=== PATIENT | female | born 1940 | race Caucasian/White ===

== ENCOUNTER 2018-04-07 20:38 | Inpatient (IN) ==
--- NOTE | 2018-04-08 02:24 | History & Physical Report ---
Date of Service April 08, 2018 Assessment & Plan (1) Elevated d-dimer: 78F presented earlier this afternoon to [facility] with complaint of dyspnea. Had started several weeks prior, worsened by walking and exertion, resolved with rest. She has had a cough in the last few weeks which was treated with antibiotic for sinusitis. 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 Denies prolonged air travel, h/o clots, not on estrogens, leg swelling or edema. Denies fevers/chills. Denies unintended weight loss. Denies h/o CHF. Denies weakness or numbness or tingling, chest pain. Has a dry cough. On review of outside records: On room air, vitals stable. Chest x-ray was unremarkable. BMP remarkable for estimated GFR 46, creatinine 1.2, troponin less than 0.02. Urinalysis negative for nitrates, few white blood cells, moderate epithelial cells. CBC remarkable for pancytopenia white blood cell 2.5 up from 1.7, hemoglobin 9.2 down from 11.9, hematocrit 27.1, MCV 108, platelets 135, d-dimer 669 INR 1.25, BNP 29.2 EKG reviewed rate of 75, QTC 415, normal sinus rhythm with no ischemic changes. Concern for elevated D-dimer in setting of BENTON, dye allergy, transferred here for VQ scan. Elevated D-dimer (669), dyspnea for several weeks in setting of polycythemia vera -allergic to IV dye -plan for VQ scan to r/o PE -O2 as needed. Currently on room air and not tachycardic. -Tele FEN/GI: heart healthy DVT ppx: lovenox CODE STATUS: FULL as discussed with pt DISPO: Tele. Other ongoing medical problems: Polycythemia vera -stable -under the care of Dr. Tinoco as above for this. Per report has just completed cyclosporine, and hydroxyurea was DCed 1 month ago Depression -cont home citalopram Pain -cont home gabapentin, voltaren gel Hypovitaminosis -cont home vit D Reflux -cont home PPI (2) Polycythemia vera: (3) Dyspnea: (4) Dye allergic reaction: (5) Depression: (6) Chronic pain: History of Present Illness Primary Care Provider: NO PCP 78F presented earlier this afternoon to [facility] with complaint of dyspnea. Had started several weeks prior, worsened by walking and exertion, resolved with rest. She has had a cough in the last few weeks which was treated with antibiotic for sinusitis. 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 Denies prolonged air travel, h/o clots, not on estrogens, leg swelling or edema. Denies fevers/chills. Denies unintended weight loss. Denies h/o CHF. Denies weakness or numbness or tingling, chest pain. Has a dry cough. On review of outside records: On room air, vitals stable. Chest x-ray was unremarkable. BMP remarkable for estimated GFR 46, creatinine 1.2, troponin less than 0.02. Urinalysis negative for nitrates, few white blood cells, moderate epithelial cells. CBC remarkable for pancytopenia white blood cell 2.5 up from 1.7, hemoglobin 9.2 down from 11.9, hematocrit 27.1, MCV 108, platelets 135, d-dimer 669 INR 1.25, BNP 29.2 EKG reviewed rate of 75, QTC 415, normal sinus rhythm with no ischemic changes. Concern for elevated D-dimer in setting of BENT[place], dye allergy, transferred here for VQ scan. Allergic to IV contrast (hives), penicillins, ibuprofen, oxycodone. PMH 1. Arthritis 2. Depression 3. Hypertension, heart catheterization in 2013 clear 4. Polycythemia vera PSH 1. Cholecystectomy 2. Total hysterectomy 3. Bilateral knee replacement SH: Lives alone. Daughter is at bedside. 39-[id number]-ezwk history, quit 5 years ago. Denies etoh/drugs. Home medications: Aspirin 81 mg daily Citalopram p.o. daily Gabapentin p.o. at bedtime Voltaren gel 4 times a day Vitamin D Allergies Allergy/AdvReac Type Severity Reaction Status Date / Time ibuprofen Allergy Hives Verified 04/08/18 03:05 Iodinated Contrast- Oral and Allergy Hives Verified 04/08/18 03:05 IV Dye oxycodone Allergy Redness of Verified 04/08/18 03:05 Skin Penicillins Allergy Hives Verified 04/08/18 03:05 Home Medications Home Medications Medication Instructions Recorded Confirmed Type aspirin [Aspir-81] 81 mg PO DAILY 04/08/18 04/08/18 History cholecalciferol (vitamin D3) 2,000 units PO BID 04/08/18 04/08/18 History [Vitamin D3] citalopram 20 mg PO DAILY 04/08/18 04/08/18 History clotrimazole-betamethasone % TOPICAL 04/08/18 History diclofenac sodium [Voltaren] 1 % TOPICAL QID 04/08/18 04/08/18 History folic acid 1 mg PO DAILY 04/08/18 04/08/18 History gabapentin 200 mg PO TID 04/08/18 04/08/18 History hydroxyurea 500 mg PO DAILY 04/08/18 04/08/18 History omeprazole PO DAILY 04/08/18 History Past Med/Surg History Medical History Anxiety Chronic back pain Depression GERD (gastroesophageal reflux disease) History of hysterectomy Hypertension Osteoarthritis Peripheral neuropathy Surgical History History of cholecystectomy History of total knee replacement Social History Current Living Situation: Alone Other Information That Helps Us Care for You: No Feels Safe at Home: Yes Safety Concerns: Feels Safe At This Time Smoking Status: Former smoker Smoking End Date: 2012 Hx Alcohol Use: No Hx Substance Use: No Beliefs That Will Affect Care: None Preferred Language: [place] Communication Ability: Effective Review of Systems All systems reviewed & are unremarkable except as noted in HPI & below Physical Exam 2 Physical Exam: Vitals noted on telemetry are within normal limits . GENERAL: Awake, alert to person, place, and time, nontoxic-appearing, in no distress HENT: Normocephalic, atraumatic. . Mucus membranes appear moist. EYES: Normal conjunctiva. Sclera non-icteric. EOMI. NECK: Supple. Full range of motion. No JVD RESPIRATORY: Clear to auscultation. Normal work of breathing. CARDIAC: Regular rate, normal rhythm. Extremities warm and well perfused, 2+ radial pulses bilaterally; 2+ posterior tibialis pulses bilaterally. ABDOMEN: Soft, non-distended. No tenderness to palpation in all four quadrants. No rebound or guarding. No masses. Bowel sounds are normal. LOWER EXTREMITIES: Inspection of calves reveal equal size bilaterally. They are non-tender. No edema. No discoloration. NEURO: No focal gross focal motor deficits noted. Sensation in tact. CN II-XII grossly in tact. SKIN: Rash not present. No jaundice noted. Significant lesions not present. PSYCH: Appropriate mood and affet. Cooperative. Exam as done by Jasmin Rocha MD, Lead Bi Developer. Supervising Physician Co-Signing Physician Notes Pt was seen/examined following the resident MD Mag Rocha. Orders and plan of care were discussed with the resident. 78 y/o F Hx HTN, depression, polycythemia vera. Presents from [place] for c/o exertional dyspnea. Despite a lack of hypoxia or tachycardia, they determined that she should have a CT chest to R/O PE due to her underlying polycythemia. She is allergic to dye however which gives her hives. She was transferred to [facility] to undergo a VQ scan although it is entorely unclear why they did not give her steroids and obtain the CT at [place]. She reports she has had to have dye during a prior surgical procedure and was fine after receiving steroids and Benadryl. She does not have any symptoms at rest on arrival to [facility]. OE AAO x 3 S1,2 R CTAB NT, ND, No CCE No deficits P: The pt is scheduled for a VQ. Her pretest probability is low. If the test is negative we could consider DC or if the test is equivocal we could consider treating with steroids and Benadryl and then obtaining the CT. Resident Activity Tracking Resident Involvement: Resident Care Provided Care Provided: Adult Hospital Medicine
[2018-04-08] MEDS ORDERED: ACETAMINOPHEN 325 MG TAB PO PRN (02:36)
[2018-04-08] MEDS ORDERED: POLYETHYLENE (MIRALAX) 17 GM PACK PO PRN (02:36)
[2018-04-08] MEDS ORDERED: MAGNESIUM HYDROXIDE SUSP 30 ML UDC PO PRN (02:36)
[2018-04-08] MEDS ORDERED: ALUMINUM/MAGNESIUM SUSP 30 ML UDC PO PRN (02:36)
[2018-04-08] MEDS ORDERED: PATIENT'S ALLERGY INFO NEEDS ENTERED SCH (02:45)
[2018-04-08 07:36] LABS: INR 1.2 (0.9-1.1); Prothrombin Time 11.8 Seconds (9.0-12.0)
[2018-04-08 07:43] LABS: Hematocrit (blood only) 26.3 % (37-47); Hemoglobin 8.9 g/dL (12.0-16.0); Mean Corpuscular Hgb Conc 33.8 g/dL (32-36); Mean Corpuscular Volume 109.6 fL (80-100); Mean Platelet Volume 10.3 fL (7.4-10.4); Nucleated RBC # (auto) 0.09 K/uL (0-0); Nucleated RBC % (auto) 3.4 %; Platelet Count 110 K/uL (130-400); RDW Standard Deviation 59.8 fL (36.4-46.3); White Blood Count 2.49 K/uL (4.8-10.8)
[2018-04-08] MEDS: GABAPENTIN 100 MG CAP PO SCH ×3 (07:52→20:35)
[2018-04-08] MEDS: PANTOprazole 40 MG TAB PO SCH (07:52)
[2018-04-08] MEDS: ASPIRIN 81 MG ECTAB PO SCH (07:52)
[2018-04-08] MEDS: CHOLECALCIFEROL 1,000 UNITS TAB PO SCH ×2 (07:52→20:34)
[2018-04-08] MEDS: CITALOPRAM 20 MG TAB PO SCH (07:53)
[2018-04-08] MEDS: FOLIC ACID 1 MG TAB PO SCH (07:53)
[2018-04-08] MEDS: DICLOFENAC SOD 1% GEL 100 GM TUBE EXT SCH ×4 (07:54→20:35)
[2018-04-08 07:56] LABS: BUN Creatinine Ratio 17.3 (10-20); Calcium 8.7 mg/dl (8.5-10.1); Creatinine Clr Calc Pharmacy 47.1 ml/min; Est GFR (African American) 58.1; Est GFR (Non-African American) 50.1; Potassium 4.2 mmol/L (3.5-5.1)
[2018-04-08 08:03] LABS: Hypogranular Neutrophils 2+
[2018-04-08 08:06] LABS: ALC (manual) 1.33 K/uL (1.2-3.4); Blast Cells % (manual) 16.1 %; Lymphocytes # (manual) 1.33 K/uL (1.2-3.4); Lymphocytes % (manual) 53.5 %; Neutrophils % (manual) 30.4 %
[2018-04-08] MEDS ORDERED: ENOXAPARIN INJ 40 MG/0.4 ML SYR SQ SCH (09:00)
[2018-04-08 09:12] LABS: Macrocytosis Present
--- NOTE | 2018-04-08 12:53 | Nuclear Medicine Report ---
NUCLEAR MEDICINE VENTILATION/PERFUSION SCAN CLINICAL HISTORY: Dyspnea. Cough. Elevated d-dimer. COMPARISON: None TECHNIQUE: For the ventilation portion of this exam, 33.4 mCi of DTPA was inhaled at 12:00 PM on Apr. Immediately following inhalation, imaging of the chest was carried out in the anterio r, posterior, left lateral, right lateral, LPO, RPO, MAN and SMITH projections. For the perfusion port ion of exam, 5.7 mCi of technetium 99m MAA was injected IV at 12:20 PM on April 08, 2018. Immediate ly following injection, imaging of the chest was carried out in the same projections. FINDINGS: Mild central radiotracer deposition on the ventilation portion of this exam is noted. On p erfusion images, note is made of a small focus of apparent diminished perfusion within the upper left lung. Correlation with the ventilation images is difficult given patchy radiotracer deposition on th e ventilation images. No additional defects on the perfusion images are noted. IMPRESSION: Small focus of apparent diminished perfusion within the left upper lung. Correlation wit h ventilation images is difficult on this exam. Follow-up PA and lateral chest radiographs are recomm ended to evaluate for corresponding airspace opacity or other potential etiologies such as a pacemake r. At most, this study is intermediate probability for pulmonary embolus. Electronically signed by: Elmer Mcnulty M.D. 04/08/2018 12:51 PM
[2018-04-08] MEDS ORDERED: SODIUM CHLORIDE 0.65% NA SOLN 45 ML (OCEAN) PRN (14:04)
--- NOTE | 2018-04-08 14:18 | Hospitalist Progress Note ---
Date of Service April 08, 2018 Assessment & Plan (1) Elevated d-dimer: This pt is an 78 yo female with a h/o PV previously on hydroxyurea, depression, GERD, and chronic pain, who who p/w complaint of dyspnea worsening over the last week. It is worsened by walking and exertion, resolved with rest. She has had a cough in the last few weeks which was treated with antibiotic for sinusitis but had no improvement. She is unable to breathe throough her nose. SHe is also a former 50 pack year smoker, quit 5 years ago, no formal diagnosis of COPd and no h/o frequent bronchitis. She was seen at [facility] and had a +D-dimer, but with contrast allergy, was transferred here to [facility] to undergo V/Q scan to look for PE. Of note, she recently stopped her Hydroxyurea one month ago for low cell counts and was placed on acyclovir for prophylaxis. She had an abnormal peripheral smear here with blasts, suggestive of possible AML. ehas a f/u appt with her Vascular Surgeon on 04/10/18. Denies prolonged air travel, h/o clots, not on estrogens, leg swelling or edema. Denies fevers/chills. Denies unintended weight loss. Denies h/o CHF. Denies weakness or numbness or tingling, chest pain. Has a dry cough. On review of outside records: On room air, vitals stable. Chest x-ray was unremarkable. BMP remarkable for estimated GFR 46, creatinine 1.2, troponin less than 0.02. Urinalysis negative for nitrates, few white blood cells, moderate epithelial cells. CBC remarkable for pancytopenia white blood cell 2.5 up from 1.7, hemoglobin 9.2 down from 11.9, hematocrit 27.1, MCV 108, platelets 135, d-dimer 669 INR 1.25, BNP 29.2 EKG reviewed rate of 75, QTC 415, normal sinus rhythm with no ischemic changes. Concern for elevated D-dimer in setting of BENT[place], dye allergy, transferred here for VQ scan. Elevated D-dimer (669), dyspnea for 1 week in setting of polycythemia vera and possible new diagnosis of AML V/Q scan here at most intermediate probability with perfusion defect ANAY but ventilation did not get to this area. ECHO without evidence of right heart strain. Remains with significant BENTON but not hypoxic at rest. -allergic to IV dye -plan to pretreat with steroids and benadryl as per protocol on [employer] with prednisone 50mg po at 13 hrs, 7 hrs, and [address], benadryl 50mg po [address] scan and perform in the AM Pt reports she has had IV dye since her hives occurred in 1983 -will start full dose Lovenox 1 mg/kg bid to cover until CT scan result is back -check 2 step prior to discharge (2) Polycythemia vera: Was on hydrea for long time, now recently with low counts, was stopped Peripheral smear here with blasts and possible AML? Sent for FISH studies by Pathology Discussed with Dr. Carr here who contacted her Oncologist--> he is aware of her low counts and has an appt to see her in his office on 04/10/18 There was mention in H&P of cyclosporine--> pt was never prescribed this--> her daughter contacted her pharmacy--> it was Acyclovir prescribed while counts were low to prevent her from getting shingles [facility] 750 here--> placed on neutropenic precautions -follow CBC in AM (3) Dyspnea: Worsening over at least 1 week. Has h/po smoking, has worsening anemia, all could be contributing. No evidence of volume overload but ECHO does show grade 1 diastolic dysfucntion. -r/o PE as above given elevated D-dimer and ongoing possible AML -steroids for pre-treatment for CT scan may actually help her breathing if due to COPD exacerbation -treat for acute sinusitis with Levaquin and see if this helps as well -Flonase and nasal saline for sinus congestion as well (4) Dye allergic reaction: pretreat as above (5) Depression: -continue Celexa (6) Chronic pain: continue gabapentin, Voltaren gel (7) Pancytopenia: as above, peripheral smear with blasts, possible AML -FISH studies pending -f/u with Oncologist as scheduled on 04/10/18 (8) Chronic diastolic CHF (congestive heart failure): grade 1 diastolic dysfunction on ECHO here no right sided strain -no volume overload at this time (9) DVT prophylaxis: Lovenox full dose Dispo-remain on tele Subjective Pt reports she still feels SOB with minimal exertion. Has a lot of sinus congestion and facial pressure, mild frontal headache, no relief with Biaxin course she took 2 weeks ago for 10 days. Minimal cough, no chest pain ever. No leg pain or leg swelling. No fevers. Tele with NSR, rates in 70s, 1st degree AV block Review of Systems All systems reviewed & are unremarkable except as noted in HPI & below Physical Exam 2 Vital Signs (Past 24 Hours): Last Vital Signs Temp 36.8 C 04/08/18 12:00 Pulse 75 04/08/18 12:00 Resp 20 04/08/18 12:00 BP 128/63 04/08/18 12:00 Pulse Ox 96 04/08/18 12:00 Constitutional: WD/WN, vitals as above Eyes: PERRL, conjunctivae normal, anicteric sclerae ENMT: external ear and nose normal, oropharynx normal Neck: trachea midline, no thyromegaly Respiratory: normal respiratory effort, lungs clear to auscultation Cardiovascular: RRR, no murmur, no edema Gastrointestinal (Abdomen): normal bowel sounds, soft, nontender, no hepatosplenomegaly Musculoskeletal: Extremities: extremities normal to inspection (no calf tenderness, neg Lisa's sign bilat); no cyanosis and no clubbing Skin: no rashes, warm and dry Neurologic: moves all extremities and awake; no focal motor deficits Psychiatric: A+Ox3, euthymic affect Results & Data Laboratory Results 04/08/18 04/08/18 04/08/18 Range/Units 07:05 07:05 07:05 WBC (4.8-10.8) K/uL RBC (4.2-5.4) M/uL Hgb (12.0-16.0) g/dL Hct (37-47) % MCV (80-100) fL MCH (25-34) pg MCHC (32-36) g/dL RDW Std Deviation (36.4-46.3) fL RDW Coeff of Radha (11.5-14.5) % Plt Count (130-400) K/uL MPV (7.4-10.4) fL Absolute Nucleated RBC (0-0) K/uL Nucleated RBC % (auto) % Neutrophils % (Manual) % Lymphocytes % (Manual) % Blast Cells % (Manual) % Neutrophils # (Manual) (1.4-6.5) K/uL Total Absolute Neuts (1.4-6.5) K/uL Lymphocytes # (Manual) (1.2-3.4) K/uL Total Abs Lymphocytes (1.2-3.4) K/uL Blast Cells # (Man) (0-0) K/uL Hypogranular Neuts Blood Smear Review Giant Platelets Macrocytosis PT 11.8 (9.0-12.0) Seconds INR 1.2 H (0.9-1.1) Sodium 139 (136-145) mmol/L Potassium 4.2 (3.5-5.1) mmol/L Chloride 105 (98-107) mmol/L Carbon Dioxide 28 (21-32) mmol/L Anion Gap 6.0 (3-11) BUN 18 (7-18) mg/dl Creatinine 1.05 (0.6-1.2) mg/dl Est Cr Clr Drug Dosing 47.1 ml/min Est GFR ( Amer) 58.1 Est GFR (Non-Af Amer) 50.1 BUN/Creatinine Ratio 17.3 (10-20) Glucose 111 H (70-99) mg/dl Calcium 8.7 (8.5-10.1) mg/dl AML (FISH) Pending Flow Cytometry Comment Pending [facility] Pending 04/08/18 Range/Units 07:05 WBC 2.49 L (4.8-10.8) K/uL RBC 2.40 L (4.2-5.4) M/uL Hgb 8.9 L (12.0-16.0) g/dL Hct 26.3 L (37-47) % MCV 109.6 H (80-100) fL MCH 37.1 H (25-34) pg MCHC 33.8 (32-36) g/dL RDW Std Deviation 59.8 H (36.4-46.3) fL RDW Coeff of Radha 15.0 H (11.5-14.5) % Plt Count 110 L (130-400) K/uL MPV 10.3 (7.4-10.4) fL Absolute Nucleated RBC 0.09 H (0-0) K/uL Nucleated RBC % (auto) 3.4 % Neutrophils % (Manual) 30.4 % Lymphocytes % (Manual) 53.5 % Blast Cells % (Manual) 16.1 % Neutrophils # (Manual) 0.76 L (1.4-6.5) K/uL Total Absolute Neuts 0.76 L* (1.4-6.5) K/uL Lymphocytes # (Manual) 1.33 (1.2-3.4) K/uL Total Abs Lymphocytes 1.33 (1.2-3.4) K/uL Blast Cells # (Man) 0.40 H (0-0) K/uL Hypogranular Neuts 2+ Blood Smear Review Giant Platelets 2+ Macrocytosis Present PT (9.0-12.0) Seconds INR (0.9-1.1) Sodium (136-145) mmol/L Potassium (3.5-5.1) mmol/L Chloride (98-107) mmol/L Carbon Dioxide (21-32) mmol/L Anion Gap (3-11) BUN (7-18) mg/dl Creatinine (0.6-1.2) mg/dl Est Cr Clr Drug Dosing ml/min Est GFR ( Amer) Est GFR (Non-Af Amer) BUN/Creatinine Ratio (10-20) Glucose (70-99) mg/dl Calcium (8.5-10.1) mg/dl AML (FISH) Flow Cytometry Comment Misc Genetic Test Diagnostic Findings V/Q scan: NUCLEAR MEDICINE VENTILATION/PERFUSION SCAN CLINICAL HISTORY: Dyspnea. Cough. Elevated d-dimer. COMPARISON: None TECHNIQUE: For the ventilation portion of this exam, 33.4 mCi of DTPA was inhaled at 12:00 PM on April 08, 2018. Immediately following inhalation, imaging of the chest was carried out in the anterior, posterior, left lateral, right lateral, LPO, RPO, [place] and SMITH projections. For the perfusion portion of exam, 5.7 mCi of technetium 99m MAA was injected IV at 12:20 PM on April 08, 2018. Immediately following injection, imaging of the chest was carried out in the same projections. FINDINGS: Mild central radiotracer deposition on the ventilation portion of this exam is noted. On perfusion images, note is made of a small focus of apparent diminished perfusion within the upper left lung. Correlation with the ventilation images is difficult given patchy radiotracer deposition on the ventilation images. No additional defects on the perfusion images are noted. IMPRESSION: Small focus of apparent diminished perfusion within the left upper lung. Correlation with ventilation images is difficult on this exam. Follow-up PA and lateral chest radiographs are recommended to evaluate for corresponding airspace opacity or other potential etiologies such as a pacemaker. At most, this study is intermediate probability for pulmonary embolus.
[2018-04-08] MEDS ORDERED: ENOXAPARIN INJ 60 MG/0.6 ML SYR SQ STA (14:49)
[2018-04-08] MEDS: FLUTICASONE PROPIONATE NA SPR 16 GM BTL SCH (15:30)
[2018-04-08] MEDS ORDERED: LEVOFLOXACIN/D5W 750 MG/150 ML BAG IV SCH (16:00)
[2018-04-08] MEDS ORDERED: predniSONE 50 MG TAB PO ONE ×2 (18:00→23:59)
[2018-04-09] MEDS ORDERED: ENOXAPARIN 100 MG/1ML SYR SQ SCH (04:00)
[2018-04-09] MEDS ORDERED: DIPHENHYDRAMINE PO SCH (06:00)
[2018-04-09] MEDS ORDERED: DiphenhydrAMINE HCL 50 MG/ML VIAL IV ONE (06:00)
[2018-04-09] MEDS ORDERED: predniSONE 50 MG TAB PO ONE (06:00)
[2018-04-09] MEDS ORDERED: OPTIRAY 320 125ml IV PRN (07:00)
--- NOTE | 2018-04-09 07:15 | CT Scan Report ---
CT angio chest PE protocol CT DOSE: 498.90 mGy.cm HISTORY: Chest pain PE TECHNIQUE: Multiaxial CT images of the chest were performed following the intravenous administration of contrast to evaluate the pulmonary arteries. Maximal intensity projection images were also obtaine d. A dose lowering technique was utilized adhering to the principles of ALARA. COMPARISON STUDY: None. FINDINGS: There is a normal caliber thoracic aorta with no evidence for dissection. There is no evide nce for pulmonary embolus. No pleural effusions. No pneumothorax. The liver and spleen are unremarkab le. No mediastinal or hilar lymphadenopathy. The central airways are patent. The lungs are clear. IMPRESSION: No evidence for pulmonary embolus. Lungs are clear. Mild emphysematous change. The above report was generated using voice recognition software. It may contain grammatical, syntax or spelling errors. Electronically signed by: Huseyin Espinosa M.D. 04/09/2018 7:14 AM
[2018-04-09 07:26] LABS: Hematocrit (blood only) 27.5 % (37-47); Hemoglobin 9.3 g/dL (12.0-16.0); Mean Corpuscular Hgb Conc 33.8 g/dL (32-36); Mean Corpuscular Volume 109.1 fL (80-100); Mean Platelet Volume 10.3 fL (7.4-10.4); Nucleated RBC # (auto) 0.12 K/uL (0-0); Nucleated RBC % (auto) 4.7 %; Platelet Count 113 K/uL (130-400); RDW Coefficient of Variation 14.9 % (11.5-14.5); Red Blood Count 2.52 M/uL (4.2-5.4); White Blood Count 2.46 K/uL (4.8-10.8)
[2018-04-09 07:34] LABS: INR 1.2 (0.9-1.1)
[2018-04-09 07:57] LABS: BUN Creatinine Ratio 21.4 (10-20); Calcium 8.8 mg/dl (8.5-10.1); Creatinine Clr Calc Pharmacy 40.2 ml/min; Est GFR (Non-African American) 41.4
[2018-04-09 08:44] LABS: Hypogranular Neutrophils 3+; Macrocytosis Present; Ovalocytes 1+
[2018-04-09 08:46] LABS: ALC (manual) 1.03 K/uL (1.2-3.4); Blast # (manual) 0.24 K/uL (0-0); Blast Cells % (manual) 9.6 %; Lymphocytes # (manual) 1.03 K/uL (1.2-3.4); Lymphocytes % (manual) 41.7 %; Monocytes # (manual) 0.06 K/uL (0.11-0.59); Monocytes % (manual) 2.6 %; Neutrophils % (manual) 45.2 %; Promyelocytes # (manual) 0.02 K/uL (0-0); Promyelocytes % (manual) 0.9 %
[2018-04-09] MEDS: DICLOFENAC SOD 1% GEL 100 GM TUBE EXT SCH ×2 (09:31→13:36)
[2018-04-09] MEDS: FLUTICASONE PROPIONATE NA SPR 16 GM BTL SCH (09:32)
[2018-04-09] MEDS: CITALOPRAM 20 MG TAB PO SCH (09:32)
[2018-04-09] MEDS: PANTOprazole 40 MG TAB PO SCH (09:32)
[2018-04-09] MEDS: FOLIC ACID 1 MG TAB PO SCH (09:32)
[2018-04-09] MEDS: CHOLECALCIFEROL 1,000 UNITS TAB PO SCH (09:33)
[2018-04-09] MEDS: GABAPENTIN 100 MG CAP PO SCH ×2 (09:34→14:43)
[2018-04-09] MEDS: ASPIRIN 81 MG ECTAB PO SCH (09:34)
[2018-04-09] MEDS ORDERED: ALBUTEROL HFA 8 GM INHALER INH ONE (13:04)
--- NOTE | 2018-04-09 14:48 | Discharge Summary ---
Date of Service April 09, 2018 Admission HPI Per Admitting Provider [id number] presented earlier this afternoon to [facility] with complaint of dyspnea. Had started several weeks prior, worsened by walking and exertion, resolved with rest. She has had a cough in the last few weeks which was treated with antibiotic for sinusitis. Her past medical history significant for polycythemia vera with a course of hydroxyurea for at least a year and a half, which resulted in leukopenia, her body welder is . Denies prolonged air travel, h/o clots, not on estrogens, leg swelling or edema. Denies fevers/chills. Denies unintended weight loss. Denies h/o CHF. Denies weakness or numbness or tingling, chest pain. Has a dry cough. On review of outside records: On room air, vitals stable. Chest x-ray was unremarkable. BMP remarkable for estimated GFR 46, creatinine 1.2, troponin less than 0.02. Urinalysis negative for nitrates, few white blood cells, moderate epithelial cells. CBC remarkable for pancytopenia white blood cell 2.5 up from 1.7, hemoglobin 9.2 down from 11.9, hematocrit 27.1, MCV 108, platelets 135, d-dimer 669 INR 1.25, BNP 29.2 EKG reviewed rate of 75, QTC 415, normal sinus rhythm with no ischemic changes. Concern for elevated D-dimer in setting of [place], dye allergy, transferred here for VQ scan. Allergic to IV contrast (hives), penicillins, ibuprofen, oxycodone. PMH 1. Arthritis 2. Depression 3. Hypertension, heart catheterization in 2013 clear 4. Polycythemia vera PSH 1. Cholecystectomy 2. Total hysterectomy 3. Bilateral knee replacement SH: Lives alone. Daughter is at bedside. 29-[id number]-duqu history, quit 5 years ago. Denies etoh/drugs. Home medications: Aspirin 81 mg daily Citalopram p.o. daily Gabapentin p.o. at bedtime Voltaren gel 4 times a day Vitamin D Acyclovir Principal Diagnosis Shortness of breath-secondary to anemia Discharge Exam Constitutional WD/WN, vitals as above Eyes PERRL, conjunctivae normal, anicteric sclerae ENMT external ear and nose normal, oropharynx normal Neck trachea midline, no thyromegaly Respiratory normal respiratory effort, lungs clear to auscultation Cardiovascular RRR, no murmur, no edema Gastrointestinal (Abdomen) normal bowel sounds, soft, nontender, no hepatosplenomegaly Musculoskeletal Extremities: extremities normal to inspection (no calf tenderness, neg Lisa's sign bilat); no cyanosis and no clubbing Skin no rashes, warm and dry Neurologic moves all extremities and awake; no focal motor deficits Psychiatric A+Ox3, euthymic affect Discharge Data Allergies Allergy/AdvReac Type Severity Reaction Status Date / Time ibuprofen Allergy Hives Verified 04/08/18 03:05 Iodinated Contrast- Oral and Allergy Hives Verified 04/08/18 03:05 IV Dye oxycodone Allergy Redness of Verified 04/08/18 03:05 Skin Penicillins Allergy Hives Verified 04/08/18 03:05 Consultations None Ordered Studies 04/09/18 07:00 CT angio chest PE protocol Routine VQ scan Hospital Course (1) Elevated d-dimer: This pt is an 78 yo female with a h/o PV previously on hydroxyurea, depression, GERD, and chronic pain, who who p/w complaint of dyspnea worsening over the last week. It is worsened by walking and exertion, resolved with rest. She has had a cough in the last few weeks which was treated with antibiotic for sinusitis but had no improvement. She is unable to breathe through her nose. She is also a former 50 pack year smoker, quit 5 years ago, no formal diagnosis of COPD and no h/o frequent bronchitis. She was seen at [facility] and had a +D-dimer, but with contrast allergy, was transferred here to [facility] to undergo V/Q scan to look for PE. Of note, she recently stopped her Hydroxyurea one month ago for low cell counts and was placed on acyclovir for prophylaxis (not acyclovir as mentioned in admitting H&P). She had an abnormal peripheral smear here with blasts, suggestive of possible AML. She has a f/u appt with her Switchboard Operator Supervisor on 04/10/18. Denies prolonged air travel, h/o clots, not on estrogens, leg swelling or edema. Denies fevers/chills. Denies unintended weight loss. Denies h/o CHF. Denies weakness or numbness or tingling, chest pain. Has a dry cough. On review of outside records: On room air, vitals stable. Chest x-ray was unremarkable. BMP remarkable for estimated GFR 46, creatinine 1.2, troponin less than 0.02. Urinalysis negative for nitrates, few white blood cells, moderate epithelial cells. CBC remarkable for pancytopenia white blood cell 2.5 up from 1.7, hemoglobin 9.2 down from 11.9, hematocrit 27.1, MCV 108, platelets 135, d-dimer 669 INR 1.25, BNP 29.2 EKG reviewed rate of 75, QTC 415, normal sinus rhythm with no ischemic changes. Concern for elevated D-dimer in setting of [place], dye allergy, transferred here for VQ scan. Elevated D-dimer (669), dyspnea for 1 week in setting of polycythemia vera and possible new diagnosis of AML V/Q scan here at most intermediate probability with perfusion defect ANAY but ventilation did not get to this area. ECHO without evidence of right heart strain. She was pretreated with steroids and benadryl over a 12-hour period and had a CT angiogram of the chest for PE which was negative. -She was given Lovenox 1 mg/kg bid to cover in the case of PE until the result was negative Elevated d-dimer may be related to possible diagnosis of AML as above She was treated for causes of dyspnea as below (2) Polycythemia vera: Was on hydrea for long time, now recently with low counts, was stopped Peripheral smear here with blasts and possible AML as per pathology report? Sent for FISH studies by Pathology-pending at time of discharge Discussed with Dr. Lilly morgan who contacted her Oncologist--> he is aware of her low counts and has an appt to see her in his office on 04/10/18 There was mention in H&P of cyclosporine--> pt was never prescribed this--> her daughter contacted her pharmacy--> it was Acyclovir prescribed while counts were low to prevent her from getting shingles ANC 750 here--> placed on neutropenic precautions (3) Dyspnea: Worsening over at least 1 week. Has h/o smoking, has worsening anemia, all could be contributing. No evidence of volume overload but ECHO does show grade 1 diastolic dysfucntion. Much improved by the day of discharge after receiving steroids for pretreatment for CT, as well as treatment for her acute sinusitis with Levaquin, Flonase, and nasal saline -PE ruled out -steroids for pre-treatment for CT scan may actually help her breathing if due to COPD exacerbation -Continue to treat for acute sinusitis with Levaquin and see if this helps as well -Anemia to be further worked up by her body welder at her follow-up appointment this week (4) Dye allergic reaction: Pretreated as above (5) Depression: -continue Celexa (6) Chronic pain: continue gabapentin, Voltaren gel (7) Pancytopenia: as above, peripheral smear with blasts, possible AML -FISH studies pending -f/u with Oncologist as scheduled on 04/10/18 (8) Chronic diastolic CHF (congestive heart failure): grade 1 diastolic dysfunction on ECHO here no right sided strain -no volume overload at this time (9) DVT prophylaxis: Lovenox full dose was provided Dispo-stable for discharge to home Total Time Total Time Spent Total Time Spent (In Minutes): Greater than 30 minutes Total Time Includes: Examination of the Patient, Discharge Planning and Medication Reconciliation Discharge Plan Discharge Items Patient Disposition: Home - Self-Care Reason For Visit: VQ SCAN Discharge Diagnosis: Shortness of breath Condition: Good Discharge Goals: Decrease discomfort, Diagnostic testing, Improve disease control, Improve function, Learn about illness and Therapeutic intervention Activity: Resume your previous activity Lifting: Gradually increase as tolerated Bathing: No limitations Exercise/Sports: Gradually increase as tolerated Non-emergency contact: Primary Care Provider and Oncologist Call non-emergency contact if: you have any medication questions, your symptoms worsen and you have a fever Follow-up/Referrals: Glendy Miramontes DO [Primary Care Provider] - 04/12/18 1:30 pm (Please, follow up with Dr. Glendy Miramontes on SundayApril 12 at 1:30 pm. *If you need to change this appointment, call the office at [phone].) Diet: Regular Addtl Provider Instructions: You were admitted with shortness of breath. You had testing that was negative for a blood clot in the lungs. You do not have pneumonia. It may be from a combination of your mild emphysema, plus your anemia, and the sinus infection. You will be treated for this with prednisone, an antibiotic called Levaquin, and an inhaler called albuterol. If your symptoms do not improve over the next week, you should consider a referral back to your Environmental Science Technician to see about further testing of your heart. Please follow up with your Switchboard Operator Supervisor regarding your low blood counts. Please follow up with your PCP within 1 week for a hospital follow up appointment. Prescriptions: New albuterol sulfate [Ventolin HFA] 90 mcg/actuation Hfa Aerosol Inhaler 2 puff Inhalation Q4 30 Days Qty: 18 RF: 0 fluticasone 50 mcg/actuation [place],Suspension 2 sprays NA DAILY Qty: 9.9 RF: 0 sodium chloride [Saline Mist] 0.65 % Aerosol,[place] 2 sprays NA Q2H PRN (Reason: nasal congestion) Qty: 1 RF: 0 levofloxacin 750 mg tablet 750 mg PO Q48H 8 Days Qty: 4 RF: 0 Continue citalopram 20 mg tablet 20 mg PO DAILY RF: 0 folic acid 1 mg tablet 1 mg PO DAILY RF: 0 gabapentin 100 mg capsule 200 mg PO TID RF: 0 clotrimazole-betamethasone 1-0.05 % cream topical RF: 0 omeprazole 20 mg capsule,delayed release(DR/EC) PO DAILY RF: 0 aspirin [Aspir-81] 81 mg Tablet,Delayed Release (Dr/Ec) 81 mg PO DAILY RF: 0 diclofenac sodium [Voltaren] 1 % Gel 1 % topical QID RF: 0 cholecalciferol (vitamin D3) [Vitamin D3] 2,000 unit Capsule 2,000 units PO BID RF: 0 Discontinued hydroxyurea 500 mg capsule 500 mg PO DAILY RF: 0 Stand-Alone Forms: [facility] Discharge Orders: Discharge Order (Routine); Ordered 04/09/18 Ordered By: Shahida Rios Admission Data Admit Date/Time: 04/08/18 01:40 Attending Provider: Shahida Rios Admit Provider: Jasmin Rocha Primary Care Provider: Glendy Miramontes Service: Telemetry Other Interventions: Discharge Summary Assessment (RN) Last Done: 04/09/18 14:55 Pending Studies at Discharge: Yes Studies:: FISH studies for AML DC Date/Time DO NOT enter until pt leaves facility: 04/09/18 15:45
[2018-04-09] MEDS ORDERED: ALBUTEROL HFA 8 GM INHALER INH SCH (20:00)
[2018-05-21 14:59] LABS: NEO FLOW Lymph/Leuk Stnd SEE NEO MISC
== END 2018-04-09 15:45 | disposition home or self-care (01) | DRG 835 ==
LOC: 2S 04-08 01:40 → SUATTDRO 04-08 01:40 → 2S 04-08 09:22
DX: I11.0 Hypertensive heart disease with heart failure; R79.1 Abnormal coagulation profile; J43.9 Emphysema, unspecified; Z79.82 Long term (current) use of aspirin; F32.9 Major depressive disorder, single episode, unspecified; G89.29 Other chronic pain; E55.9 Vitamin D deficiency, unspecified; I50.32 Chronic diastolic (congestive) heart failure; Z51.81 Encounter for therapeutic drug level monitoring; M19.90 Unspecified osteoarthritis, unspecified site; G62.9 Polyneuropathy, unspecified; M54.9 Dorsalgia, unspecified; C92.00 Acute myeloblastic leukemia, not having achieved remission; Z79.899 Other long term (current) drug therapy; D45 Polycythemia vera; Z87.09 Personal history of other diseases of the respiratory system; Z88.5 Allergy status to narcotic agent; Z87.891 Personal history of nicotine dependence; K21.9 Gastro-esophageal reflux disease without esophagitis; F41.9 Anxiety disorder, unspecified; D61.818 Other pancytopenia; Z88.6 Allergy status to analgesic agent; R06.09 Other forms of dyspnea; J01.90 Acute sinusitis, unspecified; Z88.0 Allergy status to penicillin; Z91.041 Radiographic dye allergy status